=== PATIENT | female | born 1935 | race Caucasian/White ===

== ENCOUNTER 2019-03-03 16:07 | Emergency (ER) | payer MEDICARE, OTHER ==
[~2019-03-03] VITALS: Ht 149.9 cm; Wt 46.4 kg
--- NOTE | 2019-03-03 16:32 | NUR ---
pt is 83 yo female c/o rt shoulder pain s/p grd level fall while hiking approx 1400, landed rt shoulder "sideways", +cmst to rt hand, decreased ROM to rt shoulder due to pain, no obvious deformity, +swelling, family at bedside
[2019-03-03] MEDS ORDERED: HYDROcodone/acetaminophen 5mg/325mg tablet PO ONE (16:45)
[2019-03-03 17:31] VITALS: BP 146/92
== END 2019-03-03 17:40 | disposition home or self-care (01) ==
LOC: ER 16:08
DX: S42.211A Unspecified displaced fracture of surgical neck of right humerus, initial encounter for closed fracture (principal); I10 Essential (primary) hypertension; F41.9 Anxiety disorder, unspecified; F10.99 Alcohol use, unspecified with unspecified alcohol-induced disorder; Z90.49 Acquired absence of other specified parts of digestive tract; Z88.0 Allergy status to penicillin; W01.198A Fall on same level from slipping, tripping and stumbling with subsequent striking against other object, initial encounter; Y93.89 Activity, other specified; Y92.89 Other specified places as the place of occurrence of the external cause; Y99.8 Other external cause status; Y90.9 Presence of alcohol in blood, level not specified
CPT/HCPCS: 29105; 73030; 99284